=== PATIENT | female | born 1950 | race Hispanic/Latino ===

== ENCOUNTER 2019-03-31 07:59 | Outpatient (CLI) | payer MEDICARE ==
--- NOTE | 2019-03-31 13:08 | ULT ---
THYROID ULTRASOUND: HISTORY: Thyroid nodule. COMPARISON: None. FINDINGS: The heart is is measures 0.2 cm. Right thyroid lobe: 2.5 x 1.4 x 1.7 cm. Left thyroid lobe: 4.7 x 1.0 x 1.3 cm. Nodules: Left thyroid lobe: Solid nodule in the lower pole of the left thyroid lobe measuring 1.1 x 1.0 x 1.0 cm. Solid nodule in the midpole the left thyroid lobe measuring 0.5 x 0.3 x 0.5 cm. Small hypoechoic focus in the left thyroid lobe measuring 0.3 x 0.2 cm, in the mid pole. IMPRESSION: Solid nodule in the left thyroid lobe. Nodule has a TRADS calculator score of TR3, mildly suspicious. Follow-up ultrasound in 6 months is recommended. Transcribed Date/Time: 03/31/2019 1:18 PM
== END 2019-03-31 08:00 | disposition home or self-care (01) ==
LOC: NAV ULT 07:59
PROVIDERS: ATTEND Family Medicine
DX: E04.1 Nontoxic single thyroid nodule (principal)
CPT/HCPCS: 76536

== ENCOUNTER 2021-01-14 11:11 | Emergency (ER) | payer MEDICARE, MEDICAID | END 2021-01-14 11:49 | disposition home or self-care (01) | LOC: NAV ERS 11:11 | DX: J02.9 Acute pharyngitis, unspecified (principal); E11.9 Type 2 diabetes mellitus without complications; E78.00 Pure hypercholesterolemia, unspecified; M19.90 Unspecified osteoarthritis, unspecified site; Z79.84 Long term (current) use of oral hypoglycemic drugs; Z79.82 Long term (current) use of aspirin; Z79.899 Other long term (current) drug therapy | CPT/HCPCS: 99282 ==